=== PATIENT | male | born 1975 | race Caucasian/White ===

== ENCOUNTER 2020-05-30 19:30 | Emergency (ER) | payer MEDICAID ==
[~2020-05-30] VITALS: Ht 175.3 cm; Wt 72.6 kg
[2020-05-30 20:03] VITALS: BP 137/92
--- NOTE | 2020-05-30 20:50 | NUR ---
Left ear irrigated three times, no remnants of foreign body seen
== END 2020-05-30 21:26 | disposition home or self-care (01) ==
LOC: ED 21:17
DX: T16.2XXA Foreign body in left ear, initial encounter (principal); X58.XXXA Exposure to other specified factors, initial encounter; Y93.89 Activity, other specified; Y92.89 Other specified places as the place of occurrence of the external cause; Y99.8 Other external cause status
CPT/HCPCS: 99282

== ENCOUNTER 2020-10-24 09:33 | Emergency (ER) | payer MEDICAID ==
[~2020-10-24] VITALS: Ht 177.8 cm; Wt 71.7 kg
--- NOTE | 2020-10-24 09:46 | NUR ---
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
--- NOTE | 2020-10-24 09:57 | NUR ---
PT CAME IN CO CHEST PAIN THAT STARTED THIS MORNING WHILE HE WAS SITTING ON THE COUCH. PT DESCRIBES IT A "TIGHTNESS". PT ALSO REPORTS THAT HE CURRENTLY HAS GALLSTONES BUT HAS NOT HAD HIS GALLBLADDER REMOVED BUT HAS BEEN TRYING TO FOLLOW UP WITH HIS DOC TO PTOENTIALLY SCHEDULE THAT SURGERY. EKG COMPLETE. PT RESTING IN [place] CONNECTED TO ALL MONITORING EQUIPMENT.
[2020-10-24] MEDS ORDERED: HYDROmorphone 1 MG/ML, 1ML INJ ONE (10:10)
[2020-10-24] MEDS ORDERED: ONDANSETRON 2MG/ML, 2ML ONE (10:10)
--- NOTE | 2020-10-24 10:20 | NUR ---
PT MEDICATED PER NOV. LABS DRAWN. X RAY IN WITH PT AT THIS TIME
[2020-10-24] MEDS ORDERED: ONDANSETRON 2MG/ML, 2ML IVPush ONE (10:30)
[2020-10-24] MEDS ORDERED: HYDROmorphone 2 MG/ML, 1ML IVPush PRN (10:30)
[2020-10-24] MEDS ORDERED: SODIUM CHLORIDE FLUSH 10ML SYR IVF ONE (10:30)
[2020-10-24 10:38] LABS: BASOPHILS % (AUTO) 0 % (0-1); EOSINOPHILS % (AUTO) 1 % (1-7); LYMPHOCYTES % (AUTO) 26 % (22-44); MEAN CORPUSCULAR HGB CONC 34.7 g/dL (33.2-36.2); MONOCYTES % (AUTO) 10 % (2-9); NEUTROPHILS % (AUTO) 63 % (42-75); PLATELET COUNT 104 x10^3/uL (130-400); RED BLOOD COUNT 4.93 x10^6/uL (4.38-5.82); RED CELL DISTRIBUTION WIDTH 13.5 % (9.4-14.8)
[2020-10-24 10:39] LABS: MD NO
[2020-10-24 10:43] LABS: ALBUMIN 3.7 g/dL (3.4-5.0); ANION GAP 4 mmol/L (5-15); CALCIUM 8.4 mg/dL (8.5-10.1); CHLORIDE 111 mmol/L (98-107)
[2020-10-24 10:48] LABS: ALANINE AMINOTRANSFERASE 39 U/L (12-78); ALKALINE PHOSPHATASE 66 U/L (45-117); BILIRUBIN,TOTAL 0.6 mg/dL (0.2-1.0); CREATININE 0.87 mg/dL (0.7-1.3); TOTAL PROTEIN 7.1 g/dL (6.4-8.2); TROPONIN I < 0.015 ng/mL (0.000-0.045)
--- NOTE | 2020-10-24 10:51 | NUR ---
PT REPORTS PAIN IMPROVEMENT
--- NOTE | 2020-10-24 11:03 | NUR ---
US IN WITH PT
[2020-10-24] MEDS ORDERED: MAALOX/HYOSCYAMINE/LIDOCAINE 45 ML BTL ONE (12:21)
[2020-10-24] MEDS ORDERED: MAALOX/HYOSCYAMINE/LIDOCAINE 45 ML BTL PO ONE (12:30)
[2020-10-24 12:49] VITALS: BP 115/75
== END 2020-10-24 13:11 | disposition home or self-care (01) ==
LOC: ED 10:47
DX: K29.00 Acute gastritis without bleeding (principal); K85.90 Acute pancreatitis without necrosis or infection, unspecified; K80.20 Calculus of gallbladder without cholecystitis without obstruction; R10.13 Epigastric pain; R94.31 Abnormal electrocardiogram [ECG] [EKG]; R50.9 Fever, unspecified; M79.10 Myalgia, unspecified site
CPT/HCPCS: 36415; 71045; 76700; 80053; 83690; 84484; 85025; 93005; 96374; 96375; 99285; J1170; J2405

== ENCOUNTER 2021-02-12 00:15 | Emergency (ER) | payer MEDICAID ==
[~2021-02-12] VITALS: Ht 177.8 cm; Wt 67.0 kg
[2021-02-12] MEDS ORDERED: ONDANSETRON 2MG/ML, 2ML ONE (01:42)
[2021-02-12] MEDS ORDERED: MORPHINE SULFATE 4 MG/ML, 1ML ONE (01:43)
[2021-02-12 01:54] LABS: BASOPHILS % (AUTO) 0 % (0-1); EOSINOPHILS % (AUTO) 1 % (1-7); LYMPHOCYTES % (AUTO) 37 % (22-44); MEAN CORPUSCULAR HEMOGLOBIN 31.2 pg (27.5-34.5); MEAN CORPUSCULAR HGB CONC 35.1 g/dL (33.2-36.2); MONOCYTES % (AUTO) 6 % (2-9); NEUTROPHILS % (AUTO) 56 % (42-75); PLATELET COUNT 149 x10^3/uL (130-400); RED BLOOD COUNT 5.07 x10^6/uL (4.38-5.82); RED CELL DISTRIBUTION WIDTH 13.7 % (9.4-14.8)
[2021-02-12 01:55] LABS: MD NO
[2021-02-12] MEDS ORDERED: MORPHINE SULFATE 4 MG/ML, 1ML IVPush PRN (02:00)
[2021-02-12] MEDS ORDERED: SODIUM CHLORIDE 0.9% 1,000ML IVBOLUS ONE (02:00)
[2021-02-12] MEDS ORDERED: ONDANSETRON 2MG/ML, 2ML IVPush ONE (02:00)
[2021-02-12 02:03] LABS: ALANINE AMINOTRANSFERASE 21 U/L (12-78); ALBUMIN 3.8 g/dL (3.4-5.0); ANION GAP 6 mmol/L (5-15); CALCIUM 8.4 mg/dL (8.5-10.1); CHLORIDE 110 mmol/L (98-107)
--- NOTE | 2021-02-12 02:03 | NUR ---
First contact with patient: This is a 45 yo male who presents to the ER c/o epigastric pain radiating to RUQ abdominal pain x approx 1 week. Pt denies N/V/D. Pt ao x 4. Skin warm and dry. Resp even and unlabored. No obvious signs of distress noted at this time. Significant other at bedside. Pt on cont bp and SPO2 monitors. Call light within reach. Report to edilson Nieves who assumed care of pt.
[2021-02-12 02:06] LABS: ALKALINE PHOSPHATASE 50 U/L (45-117); BILIRUBIN,TOTAL 0.5 mg/dL (0.2-1.0); TOTAL PROTEIN 7.6 g/dL (6.4-8.2)
[2021-02-12] MEDS ORDERED: KETOROLAC 60 MG/2 ML ONE (02:19)
--- NOTE | 2021-02-12 02:20 | NUR ---
pt is an iv drug user. difficult to get an IV on. sandra and myself have tried multiple times. dr godfrey notified and epifanio states to give medication IM instead.
--- NOTE | 2021-02-12 02:20 | NUR ---
report from edilson flores
[2021-02-12] MEDS ORDERED: KETOROLAC 60 MG/2 ML IM ONE (02:30)
[2021-02-12] MEDS ORDERED: KETOROLAC 30 MG/1 ML IM ONE (02:30)
[2021-02-12 02:56] VITALS: BP 125/83
--- NOTE | 2021-02-12 02:58 | NUR ---
Patient given discharge instructions and they have confirmed that they understand the instructions. Patient ambulatory with steady gait.
== END 2021-02-12 03:07 | disposition home or self-care (01) ==
LOC: ED 03:02
DX: K80.20 Calculus of gallbladder without cholecystitis without obstruction (principal); R10.13 Epigastric pain; R10.11 Right upper quadrant pain; F17.210 Nicotine dependence, cigarettes, uncomplicated
CPT/HCPCS: 36415; 80053; 83690; 85025; 93005; 96372; 99284; J1885

== ENCOUNTER 2021-04-12 21:04 | Emergency (ER) | payer MEDICAID ==
[~2021-04-12] VITALS: Ht 175.3 cm; Wt 71.3 kg
--- NOTE | 2021-04-12 21:27 | NUR ---
ASSUMED CARE OF PATIENT. PATIENT REPORTS LEFT LOW BACK PAIN THAT SHOOTS DOWN HIS LEFT LEG X1 WEEK. FAMILY AT BEDSIDE. NO ACUTE DISTRESS NOTED. CALL LIGHT IN PLACE. WILL CONTINUE TO MONITOR.
--- NOTE | 2021-04-12 21:54 | NUR ---
pt has a ride home with family. vs stable. pt ready for dc.
== END 2021-04-12 22:27 | disposition home or self-care (01) ==
LOC: ED 21:15
DX: S39.012A Strain of muscle, fascia and tendon of lower back, initial encounter (principal); M54.2 Cervicalgia; F17.200 Nicotine dependence, unspecified, uncomplicated; Z90.89 Acquired absence of other organs; X58.XXXA Exposure to other specified factors, initial encounter; Y93.89 Activity, other specified; Y92.89 Other specified places as the place of occurrence of the external cause; Y99.8 Other external cause status
CPT/HCPCS: 99283